=== PATIENT | female | born 1975 | race Caucasian/White ===

== ENCOUNTER → 2016-05-01 | Outpatient (CLI) | payer OTHER ==
[~2016-05-01] MED LIST: LIDOCAINE 1% 30 ML SDV ONE; NA BICARBONATE 50 MEQ/50 ML VIAL ONE
--- NOTE | 2016-05-01 13:26 | US ---
Bilateral Thyroid FNA Clinical Indication: Bilateral solid nodules. The nodule on the right is greater than 5 cm and diffus jose alberto heterogeneous. The left lobe thyroid nodule measures 1.7 cm in length. Baccarat Dealer: Claudia Pugh. Informed Consent: Obtained from the patient. Risks and benefits were discussed. Procedures Performed 1. The neck was prepped and draped. 2. 1% lidocaine local field block. 3. Six ultrasound-guided 25-gauge fine-needle aspirates from the left lobe nodule. 4. 1% lidocaine local field block. 5. Six ultrasound-guided 25-gauge fine-needle aspirates from the right lobe nodule. Technique: Patient is placed in supine position. A "timeout" procedure was performed to identify th e correct patient and the correct procedure. 1% Xylocaine was used for local anesthetic. All eleme nts of maximal sterile barrier technique including mask, sterile gloves, large sterile sheet, hand hy giene, and 2% chlorhexidine for cutaneous antisepsis, followed. Ultrasound evaluation of potential access site was performed. After successfully identifying the thyr oid nodules, ultrasound guidance was used to puncture the thyroid nodule. A permanent recording was c reated for the patient's record. When ultrasound is used, sterile gel and probe covers are used. Operative Report: After obtaining informed consent and performing a formal timeout, the neck was pre pped and draped. A 1% lidocaine local field block was achieved on the left. Under direct ultrasound v isualization, six 25-gauge fine-needle aspirates were performed through the left thyroid nodule. Attention was then turned to the right lobe of the thyroid which was diffusely heterogeneous. The lar gest nodular density was localized. A 1% lidocaine local field block was achieved. Six 25-gauge fine- needle aspirates were performed under direct ultrasound visualization. The samples were collected by the concession manager and sent to the lab for further evaluation. No immediate complications were incurred. Patient tolerated the procedure well. The patient will follow up with her ordering physician for results. Cross-Cutting Measure: Patient's current list of medications including all known prescriptions, over -the-counter medications, herbals, and vitamin/mineral/dietary supplements are reviewed. Medications ' name, dosage, frequency, and route of administration are confirmed. Cross-Cutting Measure #226: The patient is a nonsmoker. Prophylactic Antibiotic: Cefazolin was not ordered and administered for antimicrobial prophylaxis be cause it was not medically necessary. VTE Prophylaxis: There is not an order for VTE prophylaxis to be given within 24 hours of the proced ure end time. VTE prophylaxis was not given because it was not medically necessary. Benitez Puente M.D., [facility], [facility].
== END ==
LOC: FIMAGING 11:49
PROVIDERS: ATTEND Family Medicine Sports Medicine
PROC: 0GBG3ZX Excision of Left Thyroid Gland Lobe, Percutaneous Approach, Diagnostic (ICD-10-PCS; principal; 2016-05-01)
PROC: 0GBH3ZX Excision of Right Thyroid Gland Lobe, Percutaneous Approach, Diagnostic (ICD-10-PCS; principal; 2016-05-01)
DX: E04.9 Nontoxic goiter, unspecified (principal)

== ENCOUNTER → 2016-05-22 | Outpatient (CLI) | payer OTHER ==
--- NOTE | 2016-05-22 16:25 | US ---
Ultrasound-Guided Thyroid Biopsy/Fine-Needle Aspiration Indication: Nondiagnostic fine-needle aspiration of dominant right thyroid nodule. Resample. Crosscutting Measure #226: Current tobacco user: No. Comparison: Thyroid ultrasound dated May 01, 2016. Witnessed Consent: Witnessed informed consent was obtained after the risks, benefits, and alternativ es of ultrasound-guided thyroid biopsy were explained to the patient and all questions were answered. Procedure: Utilizing ultrasound guidance and sterile technique, the neck was prepped with ChloraPrep solution. Lidocaine with bicarbonate was used as local anesthesia. A 25-gauge needle was passed wi th ultrasound guidance into the right lobe 6-cm thyroid nodule six times (capillary technique). The specimen was reviewed by the pathologist and deemed diagnostic. The exam was terminated. No hematoma on postprocedure imaging. Patient tolerated the procedure well, without immediate compli cations. Discharge instructions were given. Impression: 1. Successful ultrasound-guided fine-needle aspiration of right thyroid nodule. 2. Please refer to pending pathology report.
== END ==
LOC: FIMAGING 09:31
PROVIDERS: ATTEND Family Medicine Sports Medicine
PROC: 0G9H3ZX Drainage of Right Thyroid Gland Lobe, Percutaneous Approach, Diagnostic (ICD-10-PCS; principal; 2016-05-22)
DX: E04.9 Nontoxic goiter, unspecified (principal)